=== PATIENT | female | born 1955 | race Caucasian/White ===

== ENCOUNTER 2024-11-06 14:05 | Day surgery (SDC) | payer MEDICARE, MEDICAID, SELFPAY ==
--- NOTE | 2024-10-26 17:24 | PM.GYNHP.1 ---
History of Present Illness History of Present Illness Narrative: Alise West is a 69 year old female Date of procedure:?? November 06, 2024 Preoperative diagnosis:? Lichen sclerosus Fusion and labial adhesions of the vulvar labia minora Planned Procedure:?? Release of labial adhesions possible partial vulvectomy, to correct severe labial adhesions Postop Meds Tylenol 1000 mg, ?3 times a day? Motrin 400 mg (over age 65 yr) ? 3 times a day ice UroGyn HPI UroGyn HPI UroGyn HPI Narrative: CC: Recurrent vulvar labial fusion HPI: 69-year-old female who presents for evaluation of above complaint.?? She reports onset of symptoms many years ago.?? She considers this a? Moderate? problem. She reports three prior surgeries for recurrent labial fusion of the vulva. She has lichen sclerosis. She reports her 1st surgery was around 2012 and the labial adhesions recurred around 2017. She had her neck surgery then until they recurred again around 2023. The last surgery affects apparently did not last as long as she presents today with recurrent fusion of the labia minora. She would like to have surgery again. She reports pain with wiping and pain with sex. Not currently sexually active. The labia have fused across the clitoris and the urethra and the upper part of the vagina. The length of the fusion is about 3-4 cm. On exam, 1 finger can be admitted in to the vagina. There seems to be space to admit 2 fingers, but the vulvar labia minora are fused over the upper part of the introitus and urethra and clitoris. Because of the fusion, the vaginal opening is about 2 cm instead of the usual 3-4 cm Currently not using any steroid cream. We will order for her clobetasol to use twice daily, starting now, and then including postoperatively and indefinitely into the future. Postoperatively we will have her use clobetasol, ice, NSAIDs like Motrin 400 mg 3 times a day prior hyst -no -0 c-sec -x1 ? Pelvic Floor Review of Systems: (HPI) Stress Urinary Incontinence symptoms (ANA): Mild, 1 small leak per day Triggers include: Cough sneeze ? Urge Incontinence symptoms (Urge UI): None Triggers include:? Pads: She wears 1 mini pad, just a few drops. Overactive Bladder symptoms (OAB):? ? Frequency: Every 2-4 hours Nocturia: X1 ? Urgency: None Prior incontinence treatment includes:? Medical: No ? Surgical:? No ? Kegels:?? Yes Physical therapy:?No? Pessary:?No? Diet / Fluids: Fluid restriction:? No Excessive fluids:?No Pain symptoms:? Painful bladder:???No Dysuria:???No Dyspareunia:? No Dysmenorrhea:? No Urinary Risk Factors UTI?s, recurrent: No Hematuria:? No Kidney Stones:?No? Tobacco use:? No Pelvic Organ Prolapse (POP) symptoms:?? Bulge: No Pressure and /or Heaviness: No Splint for defecation or voiding: No Voiding dysfunction: Abnormal stream:?No Strain to void:? No Incomplete emptying:?No Voiding difficulty:?No Retention:??? No Bowel Function: Constipation: No Strain to defecate: No Fiber: No Laxatives: No Fecal Incontinence:? Liquid stool:? No Solid stool:? Rare Sexually active:?No Incontinence with sex:? No ? General Review of Systems: Constitutional, CV, Endo, Musc-skel, Eyes, Cancer, Skin, Breast, GI, Heme/Lymph, Psych, Urinary, Neuro, Cuff Folder, Resp, Sexual:??? Pertinent positives listed above in HPI All others reviewed and negative. . . [facility] Medical History (Updated 10/02/24 @ 13:49 by Celso Holguin MD) Hypothyroid Lichen sclerosus of female genitalia Vulvar atrophy Labial adhesion, acquired Past surgical history Three prior surgeries for labial fusion Medications atorvastatin 40 mg tablet 40 mg PO DAILY 10/02/24 [History Confirmed 10/02/24] clobetasol 0.05 % topical cream 1 applic topical BID #60 grams 10/02/24 [Rx Confirmed 10/02/24] levothyroxine 88 mcg tablet 88 mcg PO DAILY 10/02/24 [History Confirmed 10/02/24] Allergies None UroGyn Exam Vitals 10/02/2512:04 Height 5 ft 8 in Weight 173 lb BMI 26.3 BP 140/82 Blood Pressure Location Rt brachial Position Sitting General: healthy, alert, coherent, no acute distress, cooperative, nontoxic Pulmonary: normal breathing, no distress Abdomen: soft, no mass, non-distended, no hernia, non-tender Vulva: Normal labia majora, The labia minora are pale white from the lichen sclerosus, and have fused across the clitoris and the urethra and the upper part of the vagina. The length of the fusion is about 3-4 cm. The labia minora are thin and pale and fused across the midline The clitoris is non visible and is certainly underneath the labial fusion No erythema, no lesions, no suspicious areas to biopsy On exam, 1 finger can be admitted in to the vagina, instead of 2. There seems to be space to admit 2 fingers, but the vulvar labia minora are fused over the upper part of the introitus and urethra and clitoris. Because of the fusion, the vaginal opening is about 2 cm instead of the usual 3-4 cm Urethra meatus: Not visible Perineum: Normal, non-tender Urethra: No mass, non-tender Bladder: no mass, non-tender Vagina: No lesions, no discharge, non-tender Prolapse none, unable to do speculum exam at this time Levators: Non-tender, Cervix: Unable to visualize Uterus: Unable to assess Bimanual: Unable to assess, but no obvious abdominal mass Anus: No lesion, non-tender, no hemorrhoid Assessment & Plan (1) Labial adhesion, acquired: Status: Acute (2) Vulvar atrophy: Status: Acute (3) Lichen sclerosus of female genitalia: Status: Acute Assessment and Plan ? Patient counseled regarding above conditions.? Educational materials given to patient. 1. She has recurrent fusion of the labia minora due to severe vulvar lichen sclerosis. Three prior surgeries Now desires a repeat 4th [place] [address], release of labial adhesions. She may need more involved surgery than this, if so, the will be determined intra-op, at the time of surgery, For example, she might need partial vulvectomy (in this case, removing inflamed vulvar skin of the labia minora) Might need to excise part of the inflamed vulvar skin, to try to lower the risk of recurrence of labia minora fusion We will have her use clobetasol now Postoperatively, we will have her use ibuprofen, ice, clobetasol Surgical Counselling Note Patient seen for surgical counselling.? She desires surgical repair. Please see? H & P for exam and discussion. Date of procedure:?? November 06, 2024 Preoperative diagnosis:? Lichen sclerosus Fusion and labial adhesions of the vulvar labia minora Planned Procedure:?? Release of labial adhesions possible partial vulvectomy, to correct severe labial adhesions Postop Meds Tylenol 1000 mg, ?3 times a day? Motrin 400 mg (over age 65 yr) ? 3 times a day ice Patient counseled extensively about the Risks, Benefits, and Alternatives to surgery.? She was offered the opportunity to ask any questions, and all questions were answered. ? Surgical Risks include: Bleeding, Hemorrhage, Transfusion, Infection (especially wound or bladder), Injury to adjacent organs (especially bladder, ureter, bowel, blood vessels, nerves), Postop or Chronic Pain, need for Reoperation, and Life-threatening event (especially M.I., CVA, PE, DVT). Procedure Risks include: Failure to Cure condition, Recurrence of condition months or years later, Urinary incontinence, Voiding dysfunction or Urinary Retention with prolonged catheter use, Poor wound healing, Erosions of any mesh or graft used, Dyspareunia, Vaginal scarring or narrowing, Need for additional surgery (immediate or delayed).? The expected cure and improvement and failure rates were discussed. Patient counseled to avoid the following for 6 weeks after surgery: (1) Impact sports (like running or jumping), walking and stairs OK (2) Lifting over 20# (3) Sexual intercourse No limits after 6 weeks. ? Good exercise tolerance, > 4 Mets. Her current medications were reviewed, and instructions given over which to use and which to discontinue before surgery.? Post-operative care instructions reviewed.? We discussed post-operative pain: Pain should be in the mild-moderate range, but can be moderate-severe for the first few days.?? Prescriptions will typically be given for (1) acetaminophen (Tylenol) and (2) non-steroidal anti-inflammatory drug (NSAID, like Motrin or Naprosyn), use both together, around the clock. Prescription will also be given for a (3) narcotic pain medication. Use the narcotic as needed, as a booster to the Tylenol and NSAID. You might need 0-4 narcotic pills a day typically. The narcotic will only be needed for a few days.?? Gradually use less of the narcotic, but continue the Tylenol and NSAID.? After a few days, the narcotic should no longer be needed, and only the Tylenol and NSAID will be needed.? Warm packs or cold packs can also be used for pain.??Do not drive for as long as you are using the narcotic pain medication? - this should only be a few days.?? Constipation is associated with use of narcotic pain medications, and can be improved with use of a stool softener, or fiber, or a mild laxative.? All of her questions were answered Celso Holguin MD UroGynecology & Pelvic Reconstructive Surgery [facility] Medical History (Updated 10/02/24 @ 13:49 by Celso Holguin MD) Lichen sclerosus of female genitalia Vulvar atrophy Labial adhesion, acquired Meds Home Medications and Allergies Home Medications ?Medication ?Instructions ?Recorded ?Confirmed ?Type atorvastatin 40 mg tablet 40 mg PO DAILY 10/02/24 10/02/24 History clobetasol 0.05 % topical cream 1 applic topical BID #60 grams 10/02/24 10/02/24 Rx levothyroxine 88 mcg tablet 88 mcg PO DAILY 10/02/24 10/02/24 History Allergies Allergy/AdvReac Type Severity Reaction Status Date / Time No Known Drug Allergies Allergy Unverified 10/02/24 13:05 Assessment & Plan Time-Based Coding :: [TOTAL MINUTES] spent with patient and on the chart (including review of chart, obtaining history, exam, reviewing outside data, placing orders, documenting exam and treatment plan, and counseling patient) on [DATE].
[2024-11-01 13:00] VITALS: BMI 26.3
[2024-11-06] VITALS (7 sets, daily range): BP systolic 130–152; BP diastolic 69–94; PULSE 74–89; RESP 16–23; TEMP 36.2–36.4; O2SAT 95–97; BMI 26.3
[2024-11-06] MEDS: LACTATED RINGERS 1,000 ML 42 ML IV (14:45)
--- NOTE | 2024-11-06 15:40 | PM.PREOP ---
Pre-operative Note Interval Note History & Physical reviewed/Exam performed by Physician: Yes Changes to H&P: No
[2024-11-06] MEDS: CEFAZOLIN 2 GM/100 ML PREMIX 100 ML IV (16:01)
--- NOTE | 2024-11-06 16:28 | SUR.OPER ---
Lithotomy on padded OR bed, head on pillow, arms secured on padded arm boards at <90 degrees abduction. bed strap across chest. Legs secured in padded yellow fins stirrups.
[2024-11-06] MEDS: LIDOCAINE 1% W/EPI 10ML 20 ML INJ (16:37)
[2024-11-06] MEDS: LIDOCAINE 2% (GLYDO) 6 ML GEL TOP (16:45)
--- NOTE | 2024-11-06 17:38 | P.OP_ITS ---
Operative Date/Time/Diagnoses Date of procedure: 11/06/24 Time of procedure: 16:00 Pre-op diagnosis: Lichen sclerosis, severe vulvar labial adhesions Post-op diagnosis: same Procedure & Clinicians Procedure: Procedures Operation Date: 11/06/24 16:00 Actual Procedure Side Surgeon p RELEASE OF LABIAL ADHESIONS Not Applicable Celso Holguin MD Operative Notes Findings: Operative Note Surgeon:? Celso Holguin MD Automotive Sales Manager:?? none Pre-Op Diagnosis:?? Lichen sclerosis, severe vulvar labial adhesions Post-Op Diagnosis: Same Procedure: Release of severe vulvar labial adhesions Findings (brief): 1. On initial exam under anesthesia, only able to insert 1 finger into the vagina. The labia minora was fused over the clitoris and urethra and anterior vagina. The length of the fusion was 4.5 cm 2. The tissue was injected with lidocaine extensively 3. A scalpel was used to release the fused vulvar skin , and this was done until the urethra was exposed and the clitoris was exposed. There was minimal bleeding. 4. Able to insert 2 fingers at the end of the case into the vagina. Lidocaine gel and Xeroform dressing was applied over the wound. The open wound was about 3 cm x 4.5 cm 5. We will have her care for the wound with keeping it moist with bacitracin or Neosporin ointment, and alternating with lidocaine ointment, each 3 to 4 times a day. Keeping it covered with Xeroform gauze. Date of Surgery:? November 06, 2024 Complications:? None Specimens:? None Anesthesia Technique: General LMA Estimated Blood Loss (mls):? Minimal Blood Replacement (mls):? None Drains:? None Condition:? Stable Procedure in detail: After consent was confirmed, the patient was taken to the operating room and placed under general anesthesia without incident.? Sequential compression devices were in place and active.? She received perioperative antibiotics.? She was then prepped and draped in the usual sterile fashion after placement in the dorsal lithotomy position using the Bo stirrups. She was only able to be prepped with Betadine externally due to the small introitus due to the fusion of the labia. After she was draped, the inside of the vagina was irrigated with Betadine and prepped with a single gauze held with a thin clamp and dipped in Betadine A scalpel was used to make an incision in the midline along the course of the fused labial adhesions, the length of this incision was 4.5 cm it was gently carried deeper into the tissue to get it to release. Ultimately it was incised to a depth of about 1.5 cm, given that the open wound was about 3 cm x 4.5 cm. There was minimal bleeding. That bleeding was controlled with electrocautery. No suturing needed. There was no underlying normal epithelium that could be used to close over the raw surface. The urethra was able to be exposed during the dissection , as was the clitor al tissue. The wound was covered with lidocaine gel and then a Xeroform gauze was applied. Sponge, needle and instrument count was correct.? The patient tolerated the procedure well and was taken to the recovery room in stable condition. Celso Holguin MD UroGynecology & Pelvic Reconstructive Surgery [place], [place] Applied: other (Xeroform gauze to the open wound)
== END 2024-11-06 18:30 | disposition home or self-care (01) ==
PROVIDERS: PCP Physician Assistant; Referring Provider Obstetrics & Gynecology Gynecology; Visit Provider Obstetrics & Gynecology Gynecology
DX: N90.89 Other specified noninflammatory disorders of vulva and perineum (principal); N90.4 Leukoplakia of vulva; N39.3 Stress incontinence (female) (male); R35.0 Frequency of micturition; R35.1 Nocturia
CPT/HCPCS: 56441; J0690; J1100; J1885; J2405; J2704; J3010